=== PATIENT | male | born 1950 | race Caucasian/White ===

== ENCOUNTER 2016-04-22 11:57 | Day surgery (SDC) | payer OTHER ==
[~2016-04-22] VITALS: Ht 185.4 cm; Wt 122.0 kg
[~2016-04-22 11:57] MED LIST: AFEDITAB CR30 MG PO; ALEVE220 MG PO; AMARYL4 MG PO; AMOX TR-K CLV1 EAC4 PO; ANTIVERT25 MG PO; APRESOLINE25 MG PO; ASCORBIC ACID500 M3 PO; ASPIR 8181 M1 PO; ASPIRIN325 MG PO; ASPIRIN81 M2 PO; Amaryl PO; BACTRIM,SEPT1 TABLET PO; CIPRO500 MG PO; CLONIDINE HCL0.2 MG PO; CLOPIDOGREL75 MG PO; COLACE100 MG PO; DIABETA,MICRO1.25 MG PO; DICLOXACILLIN500 MG PO; Ecotrin PO; FENOFIBRATE160 M1 PO; FERROUS SULFAT325 MG PO; FLAGYL500 MG PO; FOLIC ACID0.4 MG PO; FUROSEMIDE20 MG PO; FUROSEMIDE40 MG PO; GABAPENTIN300 MG; GABAPENTIN300 MG PO; GLIMEPIRIDE4 MG; GLIMEPIRIDE4 MG PO; GLUCOPHAGE1000 MG; GLUCOPHAGE1000 MG PO; GLUCOSAMINE &1 EAC1 PO; GLUCOSAMINE CH1 EAC2 PO; GRALISE PO; GRALISE300 MG PO; HYDRALAZINE HCL25 MG PO; HYDRALAZINE HCL50 MG PO; HYDROCODON-ACE1 EAC7 PO; K-DUR20 MEQ PO; KAYEXALATE15 GM/60 M PO; KEFLEX500 MG PO; KLOR-CON M2020 MEQ PO; LASIX40 MG PO; LEVEMIR FL100 UNIT/1 SC; LEVOFLOXACIN500 MG PO; LEVOFLOXACIN750 MG PO; LIPITOR80 MG PO; LISINOPRIL10 MG PO; LISINOPRIL20 MG PO; LISINOPRIL40 MG; LISINOPRIL40 MG PO; LOPRESSOR25 MG PO; LOPRESSOR50 MG PO; LUGOL'S STRONG I8 ML TP; Lasix PO; METFORMIN HCL1000 M1 PO; METOPROLOL SUCC50 MG PO; NIFEDIPINE ER30 MG PO; NITRO QUICK PO; NITROSTAT0.4 MG SL; OMEPRAZOLE20 MG PO; OMEPRAZOLE40 M1 PO; OXAYDO5 MG PO; PERCOCET 5/31 TABLET PO; PLAVIX75 MG PO; PREDNISONE20 MG PO; PRINIVIL40 MG PO; PYRIDIUM200 MG PO; Plavix PO; SILVASORB1.5 OZ TP; SILVER GEL14.2 GM TP; SIMVASTATIN80 MG PO; SPIRONOLACTONE50 MG PO; TOPROL XL6.25 MG PO; ULTRAM50 MG PO; VITAMIN B12 100MCG PO; VITAMIN B12 PO; [UNRECOGNIZED DRUG - REMARK]; [UNRECOGNIZED DRUG - REMARK]; nifedipine
[2016-04-22 12:22] VITALS: BP 160/80
[2016-04-22 12:41] LABS: POINT-OF-CARE METER ID UU14174212
[2016-04-22 16:35] VITALS: BP 190/93
[2016-04-22 17:15] VITALS: BP 180/84
== END 2016-04-22 17:23 | disposition home or self-care (01) ==
LOC: SDC 11:57
PROVIDERS: Podiatrist Foot & Ankle Surgery
PROC: 0Y6N0Z8 Detachment at Left Foot, Complete 5th Ray, Open Approach (ICD-10-PCS; principal; 2016-04-22)
DX: E11.621 Type 2 diabetes mellitus with foot ulcer (principal); L97.524 Non-pressure chronic ulcer of other part of left foot with necrosis of bone; I10 Essential (primary) hypertension; I89.0 Lymphedema, not elsewhere classified; E78.5 Hyperlipidemia, unspecified; Z86.73 Personal history of transient ischemic attack (TIA), and cerebral infarction without residual deficits; Z85.028 Personal history of other malignant neoplasm of stomach; Z85.46 Personal history of malignant neoplasm of prostate
CPT/HCPCS: 71020; 82948; 87070; 87075; 87077; 87147; 87186; 87205; 88305; 88311; J0360; J0690; J2250; J2405; J3010; S0020

== ENCOUNTER 2016-05-24 10:51 | Observation (INO) | payer OTHER ==
[~2016-05-24] VITALS: Ht 182.9 cm; Wt 127.2 kg
[2016-05-24 13:04] VITALS: BP 169/81
[2016-05-24 15:02] VITALS: BP 188/82
[2016-05-24 15:20] VITALS: BP 190/90
[2016-05-24 16:20] VITALS: BP 190/90
[2016-05-24 17:20] VITALS: BP 190/90
[2016-05-24 17:48] LABS: POINT-OF-CARE METER ID UU13113831
[2016-05-24 20:00] VITALS: BP 160/90
[2016-05-24 21:55] LABS: HEMATOCRIT 29.5 % (38.0-50.0); MCV 85.8 FL (86-99)
[2016-05-24 23:08] LABS: POINT-OF-CARE METER ID UU13113700
[2016-05-25] VITALS: BP 168/88
[2016-05-25 03:30] VITALS: BP 160/90
[2016-05-25 06:00] LABS: EOSINOPHIL (%) 2.7 % (0-5); EOSINOPHIL COUNT 0.1 K/uL (0-0.3); HEMATOCRIT 27.4 % (38.0-50.0); LYMPHOCYTE COUNT 1.4 K/uL (1.0-2.8); MCH 27.9 PG (29.0-34.0); MCHC 32.8 G/DL (30.0-36.0); MCV 84.8 FL (86-99); MEAN PLAT.VOLUME 10.8 uM^3 (9.0-12.4); MONOCYTE (%) 5.8 % (3-12); MONOCYTE COUNT 0.3 K/uL (0-0.8); NEUTROPHIL (%) 63.3 % (45-76); NEUTROPHIL COUNT 3.1 K/uL (1.8-6.4); PLATELET COUNT 158 K/uL (156-360); RBC DIS.WIDTH-CV 13.9 % (11.8-14.6); RED BLOOD COUNT 3.23 M/uL (4.00-5.50); WHITE BLOOD COUNT 4.9 K/uL (4.1-10.2)
[2016-05-25 06:23] LABS: ANION GAP 7 MEQ/L (2-14); CHLORIDE 112 MEQ/L (99-109); GFR ESTIMATE (CALCULATED) 26 mL/min/; SAMPLE HEMOLYSIS CHECK 0; SAMPLE ICTERIC CHECK 0; SAMPLE LIPEMIA CHECK 0; SODIUM 141 MEQ/L (136-147); UREA NITROGEN (BUN) 48 mg/dL (9-23)
[2016-05-25 06:34] LABS: GLUCOSE 93 mg/dL (70-99)
[2016-05-25 11:14] VITALS: BP 122/80
[2016-05-25 12:36] LABS: POINT-OF-CARE METER ID UU13113831
[2016-05-25] MEDS ORDERED: FERROUS SULFAT325 MG PO (14:58)
== END 2016-05-25 16:51 | disposition home or self-care (01) ==
LOC: 5WEST 10:51 → 2SOUTH 10:58 → 5WEST 10:58
PROVIDERS: Hospitalist; Internal Medicine
DX: E11.22 Type 2 diabetes mellitus with diabetic chronic kidney disease (principal); I12.9 Hypertensive chronic kidney disease with stage 1 through stage 4 chronic kidney disease, or unspecified chronic kidney disease; N18.4 Chronic kidney disease, stage 4 (severe); N17.9 Acute kidney failure, unspecified; D63.1 Anemia in chronic kidney disease; R55 Syncope and collapse; R42 Dizziness and giddiness; Z86.31 Personal history of diabetic foot ulcer; Z89.422 Acquired absence of other left toe(s); E11.42 Type 2 diabetes mellitus with diabetic polyneuropathy; I25.10 Atherosclerotic heart disease of native coronary artery without angina pectoris; Z98.61 Coronary angioplasty status; Z79.4 Long term (current) use of insulin; Z86.73 Personal history of transient ischemic attack (TIA), and cerebral infarction without residual deficits; Z85.46 Personal history of malignant neoplasm of prostate; I89.0 Lymphedema, not elsewhere classified; E78.5 Hyperlipidemia, unspecified; Z85.028 Personal history of other malignant neoplasm of stomach
CPT/HCPCS: 80048; 82948; 85014; 85018; 85025; 86850; 86900; 86901; 86920; 93005; G0378; J0881; J1756; J1815; J7030; J7050; P9016

== ENCOUNTER 2016-11-07 19:49 | Emergency (ER) | payer OTHER ==
[~2016-11-07] VITALS: Ht 185.4 cm; Wt 115.1 kg
[2016-11-07 21:32] VITALS: BP 193/86
== END 2016-11-07 21:40 | disposition home or self-care (01) ==
LOC: EME 19:49 → EXP 19:49
PROC: 0HQCXZZ Repair Left Upper Arm Skin, External Approach (ICD-10-PCS; principal; 2016-11-07)
DX: S51.812A Laceration without foreign body of left forearm, initial encounter (principal); W21.11XA Struck by baseball bat, initial encounter; Y93.89 Activity, other specified; Y92.320 Baseball field as the place of occurrence of the external cause; Z79.82 Long term (current) use of aspirin; Z86.73 Personal history of transient ischemic attack (TIA), and cerebral infarction without residual deficits; Z95.5 Presence of coronary angioplasty implant and graft
CPT/HCPCS: 73090; 99281; 99284

== ENCOUNTER 2016-11-10 10:23 | Emergency (ER) | payer OTHER ==
[~2016-11-10] VITALS: Ht 185.4 cm; Wt 115.5 kg
[2016-11-10] MEDS ORDERED: KEFLEX500 MG PO (10:41)
[2016-11-10 11:06] VITALS: BP 135/61
== END 2016-11-10 11:06 | disposition home or self-care (01) ==
LOC: EME 10:23
DX: S51.812A Laceration without foreign body of left forearm, initial encounter (principal); W21.03XA Struck by baseball, initial encounter; Z48.00 Encounter for change or removal of nonsurgical wound dressing; Z79.02 Long term (current) use of antithrombotics/antiplatelets; Z79.82 Long term (current) use of aspirin; Z79.4 Long term (current) use of insulin
CPT/HCPCS: 99281; 99283

== ENCOUNTER 2016-12-17 21:30 | Inpatient (IN) | payer OTHER ==
[~2016-12-17] VITALS: Ht 185.4 cm; Wt 115.0 kg
[2016-12-17 21:52] LABS: HEMATOCRIT 26.2 % (38.0-50.0); MCH 30.4 PG (29.0-34.0); MCV 89.4 FL (86-99); MEAN PLAT.VOLUME 9.8 uM^3 (9.0-12.4); PLATELET COUNT 190 K/uL (156-360); RBC DIS.WIDTH-CV 13.2 % (11.8-14.6); RBC DIS.WIDTH-SD 42.9 % (39-53); RED BLOOD COUNT 2.93 M/uL (4.00-5.50); WHITE BLOOD COUNT 6.2 K/uL (4.1-10.2)
[2016-12-17 22:02] LABS: CHLORIDE 110 mEq/L (99-109); POTASSIUM 5.1 mEq/L (3.7-5.4); SODIUM 139 mEq/L (136-147)
[2016-12-17 22:04] LABS: GLUCOSE 254 mg/dL (70-99)
[2016-12-17 22:06] LABS: ANION GAP 11 MEQ/L (2-14)
[2016-12-17 22:08] LABS: GFR ESTIMATE (CALCULATED) 14 mL/min/
[2016-12-17 22:09] LABS: UREA NITROGEN (BUN) 77 mg/dL (9-23)
[2016-12-17 22:13] LABS: TROP-I INTERPRETATION NEGATIVE; TROPONIN-I 0.05 ng/mL (0.0-0.30)
[2016-12-18] VITALS (8 sets, daily range): BP systolic 120–228; BP diastolic 56–94
[2016-12-18 04:50] LABS: TROP-I INTERPRETATION NEGATIVE; TROPONIN-I 0.08 ng/mL (0.0-0.30)
[2016-12-18 08:09] LABS: POINT-OF-CARE METER ID UU13113700
[2016-12-18 09:19] LABS: ANION GAP 9 MEQ/L (2-14); CHLORIDE 111 MEQ/L (99-109); GFR ESTIMATE (CALCULATED) 14 mL/min/; GLUCOSE 196 mg/dL (70-99); POTASSIUM 4.6 MEQ/L (3.7-5.4); SAMPLE HEMOLYSIS CHECK 0; SAMPLE ICTERIC CHECK 0; SAMPLE LIPEMIA CHECK 1; SODIUM 139 MEQ/L (136-147); UREA NITROGEN (BUN) 80 mg/dL (9-23)
[2016-12-18 10:22] LABS: TROP-I INTERPRETATION NEGATIVE; TROPONIN-I 0.08 ng/mL (0.0-0.30)
[2016-12-18 12:27] LABS: POINT-OF-CARE METER ID UU14162513
[2016-12-18] MEDS ORDERED: LISINOPRIL10 MG PO (13:49)
[2016-12-18] MEDS ORDERED: CRESTOR40 MG PO (13:51)
[2016-12-18] MEDS ORDERED: TORSEMIDE20 MG PO (13:52)
[2016-12-18] MEDS ORDERED: APRESOLINE50 MG PO (13:57)
[2016-12-18] MEDS ORDERED: LOPRESSOR50 MG PO (13:59)
[2016-12-18 17:47] LABS: POINT-OF-CARE METER ID UU13113700
[2016-12-18 21:39] LABS: POINT-OF-CARE METER ID UU14162513
[2016-12-19] VITALS (11 sets, daily range): BP systolic 105–171; BP diastolic 60–82
[2016-12-19 05:42] LABS: EOSINOPHIL COUNT 0.1 K/uL (0-0.3); HEMATOCRIT 23.2 % (38.0-50.0); IMMATURE GRANULOCYTE (%) 0.6 % (0.0-0.7); INSTRUMENT ABS NEUTROPHIL CT 4.4 K/uL; LYMPHOCYTE COUNT 1.6 K/uL (1.0-2.8); MCH 30.9 PG (29.0-34.0); MCHC 33.2 G/DL (30.0-36.0); MCV 93.2 FL (86-99); MEAN PLAT.VOLUME 10.2 uM^3 (9.0-12.4); MONOCYTE (%) 7.8 % (3-12); MONOCYTE COUNT 0.5 K/uL (0-0.8); NEUTROPHIL (%) 65.2 % (45-76); NEUTROPHIL COUNT 4.4 K/uL (1.8-6.4); PLATELET COUNT 171 K/uL (156-360); RBC DIS.WIDTH-CV 13.6 % (11.8-14.6); RBC DIS.WIDTH-SD 45.7 % (39-53); RED BLOOD COUNT 2.49 M/uL (4.00-5.50); WHITE BLOOD COUNT 6.7 K/uL (4.1-10.2)
[2016-12-19 06:27] LABS: ANION GAP 8 MEQ/L (2-14); CHLORIDE 112 MEQ/L (99-109); GFR ESTIMATE (CALCULATED) 14 mL/min/; POTASSIUM 4.8 MEQ/L (3.7-5.4); SAMPLE HEMOLYSIS CHECK 0; SAMPLE ICTERIC CHECK 0; SAMPLE LIPEMIA CHECK 0; SODIUM 140 MEQ/L (136-147); UREA NITROGEN (BUN) 77 mg/dL (9-23)
[2016-12-19 06:30] LABS: GLUCOSE 58 mg/dL (70-99)
[2016-12-19 08:16] LABS: POINT-OF-CARE METER ID UU14162513
[2016-12-19 08:37] LABS: POINT-OF-CARE METER ID UU13113831; POINT-OF-CARE USER ID PUTHJD81
[2016-12-19] MEDS ORDERED: CLEAR EYES REDN30 M1 RIGHT EYE (12:05)
[2016-12-19 12:29] LABS: POINT-OF-CARE METER ID UU13113831
[2016-12-19 23:25] LABS: POINT-OF-CARE METER ID UU13113831
[2016-12-20] VITALS (7 sets, daily range): BP systolic 116–196; BP diastolic 56–82
[2016-12-20 08:39] LABS: POINT-OF-CARE METER ID UU14162513
[2016-12-20 08:51] LABS: IMM.RETIC FRACTION 16.4 % (3-19); RETIC HGB EQUIVALENT 31.5 (28-36); RETICULOCYTE COUNT 2.7 % (0.5-1.8)
[2016-12-20 09:16] LABS: IRON 18 MCG/DL (35-150)
[2016-12-20 10:27] LABS: GFR ESTIMATE (CALCULATED) 16 mL/min/; UREA NITROGEN (BUN) 65 mg/dL (9-23)
[2016-12-20 10:39] LABS: FERRITIN 246 NG/ML (22-322)
[2016-12-20 11:40] LABS: EOSINOPHIL (%) 1.2 % (0-5); EOSINOPHIL COUNT 0.1 K/uL (0-0.3); HEMATOCRIT 26.1 % (38.0-50.0); IMMATURE GRANULOCYTE (%) 0.4 % (0.0-0.7); INSTRUMENT ABS NEUTROPHIL CT 6.3 K/uL; LYMPHOCYTE COUNT 0.8 K/uL (1.0-2.8); MCH 29.2 PG (29.0-34.0); MCHC 32.2 G/DL (30.0-36.0); MCV 90.6 FL (86-99); MEAN PLAT.VOLUME 10.6 uM^3 (9.0-12.4); MONOCYTE (%) 7.6 % (3-12); MONOCYTE COUNT 0.6 K/uL (0-0.8); NEUTROPHIL (%) 80.4 % (45-76); NEUTROPHIL COUNT 6.3 K/uL (1.8-6.4); PLATELET COUNT 156 K/uL (156-360); RBC DIS.WIDTH-CV 13.8 % (11.8-14.6); RBC DIS.WIDTH-SD 44.8 % (39-53); RED BLOOD COUNT 2.88 M/uL (4.00-5.50); WHITE BLOOD COUNT 7.8 K/uL (4.1-10.2)
[2016-12-20 12:17] LABS: POINT-OF-CARE METER ID UU13113831
[2016-12-20 22:48] LABS: POINT-OF-CARE METER ID UU14162513
[2016-12-21 04:34] VITALS: BP 165/80
[2016-12-21 06:02] VITALS: BP 152/72
[2016-12-21 06:34] LABS: EOSINOPHIL (%) 0.9 % (0-5); EOSINOPHIL COUNT 0.1 K/uL (0-0.3); HEMATOCRIT 26.8 % (38.0-50.0); IMMATURE GRANULOCYTE (%) 0.4 % (0.0-0.7); INSTRUMENT ABS NEUTROPHIL CT 5.7 K/uL; MCH 29.1 PG (29.0-34.0); MCHC 32.5 G/DL (30.0-36.0); MCV 89.6 FL (86-99); MEAN PLAT.VOLUME 10.2 uM^3 (9.0-12.4); MONOCYTE (%) 9.7 % (3-12); MONOCYTE COUNT 0.7 K/uL (0-0.8); NEUTROPHIL COUNT 5.7 K/uL (1.8-6.4); PLATELET COUNT 161 K/uL (156-360); RBC DIS.WIDTH-CV 13.7 % (11.8-14.6); RBC DIS.WIDTH-SD 44.8 % (39-53); RED BLOOD COUNT 2.99 M/uL (4.00-5.50); WHITE BLOOD COUNT 7.5 K/uL (4.1-10.2)
[2016-12-21 07:00] LABS: ANION GAP 11 MEQ/L (2-14); CHLORIDE 109 MEQ/L (99-109); GFR ESTIMATE (CALCULATED) 14 mL/min/; GLUCOSE 57 mg/dL (70-99); POTASSIUM 4.7 MEQ/L (3.7-5.4); SAMPLE HEMOLYSIS CHECK 0; SAMPLE ICTERIC CHECK 0; SAMPLE LIPEMIA CHECK 0; SODIUM 138 MEQ/L (136-147); UREA NITROGEN (BUN) 71 mg/dL (9-23)
[2016-12-21 07:45] VITALS: BP 152/76
[2016-12-21 08:59] LABS: POINT-OF-CARE METER ID UU13113831
[2016-12-21 11:58] VITALS: BP 158/72
[2016-12-21 16:12] VITALS: BP 172/78
[2016-12-21 17:58] LABS: POINT-OF-CARE METER ID UU13113831
[2016-12-21 19:00] VITALS: BP 170/72
[2016-12-21 19:30] LABS: INTERNAL CONTROL VALID? YES
[2016-12-21 22:15] LABS: POINT-OF-CARE METER ID UU13113831
[2016-12-22] VITALS: BP 146/58
[2016-12-22 03:51] VITALS: BP 153/70
[2016-12-22 05:52] LABS: EOSINOPHIL (%) 1.9 % (0-5); EOSINOPHIL COUNT 0.1 K/uL (0-0.3); HEMATOCRIT 26.5 % (38.0-50.0); IMMATURE GRANULOCYTE (%) 0.4 % (0.0-0.7); INSTRUMENT ABS NEUTROPHIL CT 3.2 K/uL; LYMPHOCYTE COUNT 1.1 K/uL (1.0-2.8); MCH 29.6 PG (29.0-34.0); MCHC 32.8 G/DL (30.0-36.0); MCV 90.1 FL (86-99); MEAN PLAT.VOLUME 10.1 uM^3 (9.0-12.4); MONOCYTE (%) 9.1 % (3-12); MONOCYTE COUNT 0.4 K/uL (0-0.8); NEUTROPHIL (%) 65.8 % (45-76); NEUTROPHIL COUNT 3.2 K/uL (1.8-6.4); PLATELET COUNT 142 K/uL (156-360); RBC DIS.WIDTH-CV 13.6 % (11.8-14.6); RBC DIS.WIDTH-SD 44.5 % (39-53); RED BLOOD COUNT 2.94 M/uL (4.00-5.50); WHITE BLOOD COUNT 4.8 K/uL (4.1-10.2)
[2016-12-22 06:21] LABS: ANION GAP 8 MEQ/L (2-14); CHLORIDE 109 MEQ/L (99-109); GFR ESTIMATE (CALCULATED) 14 mL/min/; GLUCOSE 70 mg/dL (70-99); POTASSIUM 4.7 MEQ/L (3.7-5.4); SAMPLE HEMOLYSIS CHECK 0; SAMPLE ICTERIC CHECK 0; SAMPLE LIPEMIA CHECK 0; SODIUM 135 MEQ/L (136-147); UREA NITROGEN (BUN) 74 mg/dL (9-23)
[2016-12-22 08:14] LABS: POINT-OF-CARE METER ID UU13113700
[2016-12-22 08:38] LABS: POINT-OF-CARE METER ID UU13113700
[2016-12-22 08:41] VITALS: BP 182/81
[2016-12-22 11:12] VITALS: BP 177/82
[2016-12-22 12:14] LABS: POINT-OF-CARE METER ID UU13113700
[2016-12-22] MEDS ORDERED: APRESOLINE50 MG PO (15:09)
[2016-12-22] MEDS ORDERED: RANEXA500 MG PO (15:09)
[2016-12-22] MEDS ORDERED: IMDUR30 MG PO (15:10)
[2016-12-22] MEDS ORDERED: TORSEMIDE20 MG PO (15:10)
[2016-12-22] MEDS ORDERED: DOCUSATE SODIU100 MG PO (15:11)
[2016-12-22 16:03] VITALS: BP 152/84
[2016-12-22 16:22] LABS: POINT-OF-CARE METER ID UU13113700
[2016-12-22 20:00] VITALS: BP 200/84
[2016-12-23] VITALS: BP 142/60
[2016-12-23 04:00] VITALS: BP 156/84
[2016-12-23 07:51] LABS: POINT-OF-CARE METER ID UU14162513
[2016-12-23 08:09] VITALS: BP 160/90
== END 2016-12-23 11:18 | disposition home or self-care (01) | DRG 303 ==
LOC: EME → EDBD 21:30 → EDOF 12-18 01:34 → ENRESERV 12-18 01:44 → 5WEST 12-18 03:59 → CANRESERV 12-18 04:57 → ENRESERV 12-18 04:57 → 5WEST 12-23 11:18
PROVIDERS: Hospitalist; Internal Medicine; Internal Medicine Nephrology; Nurse Practitioner Family
DX: I25.119 Atherosclerotic heart disease of native coronary artery with unspecified angina pectoris (principal); N17.9 Acute kidney failure, unspecified; D63.1 Anemia in chronic kidney disease; I13.0 Hypertensive heart and chronic kidney disease with heart failure and stage 1 through stage 4 chronic kidney disease, or unspecified chronic kidney disease; I50.9 Heart failure, unspecified; E11.22 Type 2 diabetes mellitus with diabetic chronic kidney disease; E11.21 Type 2 diabetes mellitus with diabetic nephropathy; N18.3 Chronic kidney disease, stage 3 (moderate); E78.5 Hyperlipidemia, unspecified; E87.5 Hyperkalemia; I44.0 Atrioventricular block, first degree; J45.909 Unspecified asthma, uncomplicated; K21.9 Gastro-esophageal reflux disease without esophagitis; I87.2 Venous insufficiency (chronic) (peripheral); G43.909 Migraine, unspecified, not intractable, without status migrainosus; E66.01 Morbid (severe) obesity due to excess calories; Z68.33 Body mass index [BMI] 33.0-33.9, adult; I25.2 Old myocardial infarction; Z79.4 Long term (current) use of insulin; Z79.82 Long term (current) use of aspirin; Z85.028 Personal history of other malignant neoplasm of stomach; Z85.46 Personal history of malignant neoplasm of prostate; Z86.73 Personal history of transient ischemic attack (TIA), and cerebral infarction without residual deficits; Z95.5 Presence of coronary angioplasty implant and graft; Z95.1 Presence of aortocoronary bypass graft; Z79.02 Long term (current) use of antithrombotics/antiplatelets; Z89.429 Acquired absence of other toe(s), unspecified side
CPT/HCPCS: 71020; 80048; 80069; 82272; 82565; 82607; 82728; 82746; 82948; 83540; 84466; 84484; 84520; 85025; 85025 91; 85027; 85045; 85379; 86850; 86900; 86901; 86920; 93005; 93306; 99281; 99285; J0881; J1644; J1815; J2270; J3010; J7030; P9016

== ENCOUNTER 2017-03-04 17:55 | Observation (INO) | payer OTHER ==
[~2017-03-04] VITALS: Ht 185.4 cm; Wt 111.5 kg
[~2017-03-04 17:55] MED LIST changes: +APRESOLINE50 MG PO; +CLEAR EYES REDN30 M1 RIGHT EYE; +CRESTOR40 MG PO; +CYANOCOBALAM1000 MCG PO; +DOCUSATE SODIU100 MG PO; +IMDUR30 MG PO; +RANEXA500 MG PO; +TORSEMIDE20 MG PO
[2017-03-04 18:34] LABS: POINT-OF-CARE METER ID UU13113702
[2017-03-04 20:01] LABS: PROTHROMBIN TIME 11.3 SEC (10.2-12.9)
[2017-03-04 20:04] LABS: CHLORIDE 113 mEq/L (99-109); POTASSIUM 5.3 mEq/L (3.7-5.4); SODIUM 137 mEq/L (136-147)
[2017-03-04 20:05] LABS: GLUCOSE 205 mg/dL (70-99)
[2017-03-04 20:07] LABS: ANION GAP 9 MEQ/L (2-14)
[2017-03-04 20:07] LABS: ADD MIUA? YES; BILIRUBIN NEGATIVE; BLOOD NEGATIVE; COLOR YELLOW ((YELLOW)); GLUCOSE (STRIP) >=500; KETONES NEGATIVE; LEUKOCYTES NEGATIVE; NITRITE NEGATIVE; PROTEIN (STRIP) >=500; SPECIFIC GRAVITY 1.009 (1.000-1.030); UROBILINOGEN 0.2 MG/DL (0.2-1.0)
[2017-03-04 20:09] LABS: GFR ESTIMATE (CALCULATED) 14 mL/min/
[2017-03-04 20:10] LABS: UREA NITROGEN (BUN) 81 mg/dL (9-23)
[2017-03-04 20:14] LABS: TROP-I INTERPRETATION NEGATIVE; TROPONIN-I 0.07 ng/mL (0.0-0.30)
[2017-03-04 20:25] LABS: HEMATOCRIT 28.3 % (38.0-50.0); MCHC 32.5 G/DL (30.0-36.0); MCV 89.3 FL (86-99); PLATELET COUNT 166 K/uL (156-360); RBC DIS.WIDTH-CV 13.4 % (11.8-14.6); RBC DIS.WIDTH-SD 43.7 % (39-53); RED BLOOD COUNT 3.17 M/uL (4.00-5.50); WHITE BLOOD COUNT 5.6 K/uL (4.1-10.2)
[2017-03-04 20:42] LABS: EPITHELIAL CELLS NONE SEEN /HPF; RED BLOOD CELLS RARE /HPF (0-5); WHITE BLOOD CELLS RARE /HPF (0-5)
[2017-03-04 20:43] LABS: BACTERIA RARE /HPF; CASTS PRESENT /LPF; CRYSTALS NONE SEEN; MUCUS RARE /LPF; UCUL ADDED? NO
[2017-03-04 20:44] LABS: COARSE GRANULAR CASTS RARE /LPF; FINE GRANULAR CASTS RARE /LPF
[2017-03-04 20:48] LABS: TOTAL BILIRUBIN 0.3 mg/dL (0.0-1.0)
[2017-03-04 20:49] LABS: ALKALINE PHOSPHATASE 72 IU/L (3-129)
[2017-03-04 20:52] LABS: DIRECT BILIRUBIN 0.1 mg/dL (0.0-0.3)
[2017-03-04 20:53] LABS: LIPASE 28 U/L (1.0-51.0)
[2017-03-04 21:31] LABS: PTT 19.2 SEC (25-37)
[2017-03-04] MEDS ORDERED: COLACE100 MG PO (22:56)
[2017-03-04] MEDS ORDERED: DEMADEX20 MG PO (22:56)
[2017-03-04] MEDS ORDERED: NABI650T PO (22:57)
[2017-03-04] MEDS ORDERED: FUROSEMIDE20 MG PO (22:57)
[2017-03-05] VITALS: BP 142/66
[2017-03-05 01:05] LABS: TROP-I INTERPRETATION NEGATIVE; TROPONIN-I 0.06 ng/mL (0.0-0.30)
[2017-03-05 04:00] VITALS: BP 130/72
[2017-03-05 04:12] LABS: EOSINOPHIL (%) 1.9 % (0-5); EOSINOPHIL COUNT 0.1 K/uL (0-0.3); IMMATURE GRANULOCYTE (%) 0.6 % (0.0-0.7); LYMPHOCYTE COUNT 1.2 K/uL (1.0-2.8); MCH 29.8 PG (29.0-34.0); MCHC 33.3 G/DL (30.0-36.0); MCV 89.4 FL (86-99); MEAN PLAT.VOLUME 10.6 uM^3 (9.0-12.4); MONOCYTE (%) 8.5 % (3-12); MONOCYTE COUNT 0.4 K/uL (0-0.8); NEUTROPHIL (%) 63.7 % (45-76); PLATELET COUNT 146 K/uL (156-360); RBC DIS.WIDTH-CV 13.6 % (11.8-14.6); RBC DIS.WIDTH-SD 44.2 % (39-53); RED BLOOD COUNT 3.02 M/uL (4.00-5.50); WHITE BLOOD COUNT 4.7 K/uL (4.1-10.2)
[2017-03-05 04:25] LABS: CHLORIDE 115 mEq/L (99-109); POTASSIUM 5.1 mEq/L (3.7-5.4); SODIUM 142 mEq/L (136-147)
[2017-03-05 04:27] LABS: GLUCOSE 156 mg/dL (70-99)
[2017-03-05 04:28] LABS: ANION GAP 9 MEQ/L (2-14)
[2017-03-05 04:31] LABS: GFR ESTIMATE (CALCULATED) 14 mL/min/; UREA NITROGEN (BUN) 82 mg/dL (9-23)
[2017-03-05 04:40] LABS: TROP-I INTERPRETATION NEGATIVE; TROPONIN-I 0.06 ng/mL (0.0-0.30)
[2017-03-05 08:15] LABS: POINT-OF-CARE METER ID UU13113700
[2017-03-05 09:18] VITALS: BP 140/70
[2017-03-05 12:55] LABS: POINT-OF-CARE METER ID UU13113831
[2017-03-05 13:01] VITALS: BP 145/89
[2017-03-05] MEDS ORDERED: LOPRESSOR25 MG PO (15:22)
== END 2017-03-05 16:48 | disposition home or self-care (01) ==
LOC: EME 17:55 → 5WEST 22:19 → EDOF 22:19 → ENRESERV 22:21 → 5WEST 23:25
PROVIDERS: Emergency Medicine; Internal Medicine
DX: R55 Syncope and collapse (principal); R00.1 Bradycardia, unspecified; I51.7 Cardiomegaly; I25.10 Atherosclerotic heart disease of native coronary artery without angina pectoris; Z95.5 Presence of coronary angioplasty implant and graft; R94.31 Abnormal electrocardiogram [ECG] [EKG]; E78.5 Hyperlipidemia, unspecified; I12.9 Hypertensive chronic kidney disease with stage 1 through stage 4 chronic kidney disease, or unspecified chronic kidney disease; E11.22 Type 2 diabetes mellitus with diabetic chronic kidney disease; N17.9 Acute kidney failure, unspecified; N18.4 Chronic kidney disease, stage 4 (severe); D63.1 Anemia in chronic kidney disease; E11.40 Type 2 diabetes mellitus with diabetic neuropathy, unspecified; Z86.73 Personal history of transient ischemic attack (TIA), and cerebral infarction without residual deficits; S51.812A Laceration without foreign body of left forearm, initial encounter; Z90.49 Acquired absence of other specified parts of digestive tract; Z82.49 Family history of ischemic heart disease and other diseases of the circulatory system; Z79.4 Long term (current) use of insulin; I45.10 Unspecified right bundle-branch block; Z85.028 Personal history of other malignant neoplasm of stomach; Z85.46 Personal history of malignant neoplasm of prostate
CPT/HCPCS: 71010; 80048; 80076; 81003; 82140; 82948; 83690; 84484; 85025; 85027; 85027 GA; 85610; 85730; 93005; 93880; 99281; 99285; G0378; J1644; J7030

== ENCOUNTER 2017-03-28 15:34 | Emergency (ER) | payer OTHER ==
[~2017-03-28] VITALS: Ht 185.4 cm; Wt 114.8 kg
[~2017-03-28 15:34] MED LIST changes: +DEMADEX20 MG PO; +NABI650T PO
[2017-03-28 16:28] LABS: HEMATOCRIT 28.3 % (38.0-50.0); MCH 29.6 PG (29.0-34.0); MCHC 32.9 G/DL (30.0-36.0); MCV 90.1 FL (86-99); MEAN PLAT.VOLUME 11.1 uM^3 (9.0-12.4); PLATELET COUNT 142 K/uL (156-360); RBC DIS.WIDTH-CV 13.2 % (11.8-14.6); RBC DIS.WIDTH-SD 43.4 % (39-53); RED BLOOD COUNT 3.14 M/uL (4.00-5.50); WHITE BLOOD COUNT 4.6 K/uL (4.1-10.2)
[2017-03-28 16:37] LABS: CHLORIDE 107 mEq/L (99-109); POTASSIUM 5.4 mEq/L (3.7-5.4); SODIUM 140 mEq/L (136-147)
[2017-03-28 16:39] LABS: GLUCOSE 193 mg/dL (70-99)
[2017-03-28 16:41] LABS: ANION GAP 12 MEQ/L (2-14)
[2017-03-28 16:43] LABS: GFR ESTIMATE (CALCULATED) 12 mL/min/ (58.99-99999)
[2017-03-28 16:44] LABS: UREA NITROGEN (BUN) 86 mg/dL (9-23)
[2017-03-28 16:48] LABS: TROP-I INTERPRETATION NEGATIVE; TROPONIN-I 0.05 ng/mL (0.0-0.30)
[2017-03-28 20:01] LABS: TROP-I INTERPRETATION NEGATIVE; TROPONIN-I 0.03 ng/mL (0.0-0.30)
[2017-03-28 20:35] VITALS: BP 154/94
== END 2017-03-28 20:38 | disposition home or self-care (01) ==
LOC: EME 15:34
PROVIDERS: Physician Assistant Medical
DX: R07.81 Pleurodynia (principal); R05 Cough; I44.0 Atrioventricular block, first degree; I70.0 Atherosclerosis of aorta; I25.2 Old myocardial infarction; Z86.718 Personal history of other venous thrombosis and embolism; Z79.82 Long term (current) use of aspirin; Z79.02 Long term (current) use of antithrombotics/antiplatelets; I10 Essential (primary) hypertension; E78.5 Hyperlipidemia, unspecified; E11.9 Type 2 diabetes mellitus without complications; Z79.4 Long term (current) use of insulin; Z85.028 Personal history of other malignant neoplasm of stomach; Z85.46 Personal history of malignant neoplasm of prostate
CPT/HCPCS: 71020; 80048; 84484; 85027; 93005; 94640; 99281; 99285

== ENCOUNTER 2017-06-14 10:28 | Day surgery (SDC) | payer OTHER ==
[~2017-06-14] VITALS: Ht 185.4 cm; Wt 117.5 kg
[2017-06-14 11:01] VITALS: BP 151/101
[2017-06-14] MEDS ORDERED: NORCO 5/3251 TABLET PO (14:43)
[2017-06-14 15:20] VITALS: BP 153/63
[2017-06-14 16:16] VITALS: BP 162/68
== END 2017-06-14 16:35 | disposition home or self-care (01) ==
LOC: SDC 10:28
PROVIDERS: Surgery
DX: I12.0 Hypertensive chronic kidney disease with stage 5 chronic kidney disease or end stage renal disease (principal); E11.22 Type 2 diabetes mellitus with diabetic chronic kidney disease; N18.6 End stage renal disease; Z79.4 Long term (current) use of insulin; E78.4 Other hyperlipidemia; I25.10 Atherosclerotic heart disease of native coronary artery without angina pectoris; Z79.82 Long term (current) use of aspirin; Z82.49 Family history of ischemic heart disease and other diseases of the circulatory system; Z86.73 Personal history of transient ischemic attack (TIA), and cerebral infarction without residual deficits; Z85.46 Personal history of malignant neoplasm of prostate; Z86.010 Personal history of colon polyps
CPT/HCPCS: 80048; 82948; 85027; J0690; J1644; J3010

== ENCOUNTER 2017-07-08 11:51 | Inpatient (IN) | payer OTHER ==
[~2017-07-08] VITALS: Ht 185.4 cm; Wt 120.7 kg
[~2017-07-08 11:51] MED LIST changes: +NORCO 5/3251 TABLET PO
[2017-07-08 12:20] LABS: HEMATOCRIT 24.1 % (38.0-50.0); HEMOGLOBIN 7.9 G/DL (12.5-16.6); MCH 29.6 PG (29.0-34.0); MCHC 32.8 G/DL (30.0-36.0); MCV 90.3 FL (86-99); PLATELET COUNT 169 K/uL (156-360); RBC DIS.WIDTH-CV 13.7 % (11.8-14.6); RBC DIS.WIDTH-SD 44.8 % (39-53); RED BLOOD COUNT 2.67 M/uL (4.00-5.50); WHITE BLOOD COUNT 7.3 K/uL (4.1-10.2)
[2017-07-08 12:28] LABS: CHLORIDE 114 mEq/L (99-109); POTASSIUM 5.2 mEq/L (3.7-5.4); SODIUM 142 mEq/L (136-147)
[2017-07-08 12:30] LABS: GLUCOSE 132 mg/dL (70-99)
[2017-07-08 12:33] LABS: CREATININE 5.6 mg/dL (0.6-1.3); GFR ESTIMATE (CALCULATED) 11 mL/min/ (58.99-99999)
[2017-07-08 12:34] LABS: UREA NITROGEN (BUN) 95 mg/dL (9-23)
[2017-07-08 12:40] LABS: TROP-I INTERPRETATION NEGATIVE; TROPONIN-I 0.06 ng/mL (0.0-0.30)
[2017-07-08 13:55] LABS: INTER. NORMALIZED RATIO 1.1
[2017-07-08 13:58] LABS: PTT 33.3 SEC (25-37)
[2017-07-08 14:05] LABS: LIPASE 22 U/L (1.0-51.0)
[2017-07-08] MEDS ORDERED: APRESOLINE50 MG PO (15:18)
[2017-07-08] MEDS ORDERED: TOPROL XL25 MG PO (15:22)
[2017-07-08 18:46] VITALS: BP 186/84
[2017-07-09 00:21] VITALS: BP 146/72
[2017-07-09 01:08] LABS: TROP-I INTERPRETATION NEGATIVE; TROPONIN-I 0.05 ng/mL (0.0-0.30)
[2017-07-09 03:48] VITALS: BP 153/64
[2017-07-09 06:19] LABS: HEMATOCRIT 22.6 % (38.0-50.0); HEMOGLOBIN 7.2 G/DL (12.5-16.6); MCH 29.4 PG (29.0-34.0); MCHC 31.9 G/DL (30.0-36.0); MCV 92.2 FL (86-99); PLATELET COUNT 132 K/uL (156-360); RBC DIS.WIDTH-CV 13.8 % (11.8-14.6); RBC DIS.WIDTH-SD 45.4 % (39-53); RED BLOOD COUNT 2.45 M/uL (4.00-5.50); WHITE BLOOD COUNT 5.3 K/uL (4.1-10.2)
[2017-07-09 06:39] LABS: TROP-I INTERPRETATION NEGATIVE; TROPONIN-I 0.05 ng/mL (0.0-0.30)
[2017-07-09 06:46] LABS: CHLORIDE 111 MEQ/L (99-109); CREATININE 5.7 MG/DL (0.6-1.3); GFR ESTIMATE (CALCULATED) 11 mL/min/ (58.99-99999); GLUCOSE 144 mg/dL (70-99); POTASSIUM 5.4 MEQ/L (3.7-5.4); SODIUM 140 MEQ/L (136-147); UREA NITROGEN (BUN) 91 mg/dL (9-23)
[2017-07-09 08:52] VITALS: BP 176/69
[2017-07-09 12:08] VITALS: BP 166/71
[2017-07-09 15:12] LABS: APPEARANCE CLOUDY ((CLEAR)); BILIRUBIN NEGATIVE; BLOOD SMALL; COLOR YELLOW ((YELLOW)); GLUCOSE (STRIP) >=500; KETONES NEGATIVE; LEUKOCYTES NEGATIVE; NITRITE NEGATIVE; PROTEIN (STRIP) >=500; SPECIFIC GRAVITY 1.011 (1.000-1.030); UROBILINOGEN 0.2 MG/DL (0.2-1.0)
[2017-07-09 15:24] LABS: BACTERIA RARE /HPF; EPITHELIAL CELLS RARE /HPF; MUCUS TRACE /LPF; RED BLOOD CELLS 0-5 /HPF (0-5); UCUL ADDED? YES
[2017-07-09] MEDS ORDERED: TORSEMIDE20 MG PO ×2 (16:07→16:30)
[2017-07-09 16:20] VITALS: BP 132/65
[2017-07-09] MEDS ORDERED: IMDUR30 MG PO (16:30)
== END 2017-07-09 18:52 | disposition home or self-care (01) | DRG 304 ==
LOC: EME 11:51 → EDOF 15:57 → ENRESERV 15:59 → 5SOUTH 18:15
PROVIDERS: Internal Medicine; Nurse Practitioner Acute Care
DX: I16.0 Hypertensive urgency (principal); I13.2 Hypertensive heart and chronic kidney disease with heart failure and with stage 5 chronic kidney disease, or end stage renal disease; N18.5 Chronic kidney disease, stage 5; I50.31 Acute diastolic (congestive) heart failure; D63.1 Anemia in chronic kidney disease; E11.22 Type 2 diabetes mellitus with diabetic chronic kidney disease; E11.40 Type 2 diabetes mellitus with diabetic neuropathy, unspecified; Z66 Do not resuscitate; E66.01 Morbid (severe) obesity due to excess calories; Z68.35 Body mass index [BMI] 35.0-35.9, adult; I25.10 Atherosclerotic heart disease of native coronary artery without angina pectoris; E78.5 Hyperlipidemia, unspecified; I25.2 Old myocardial infarction; J45.909 Unspecified asthma, uncomplicated; Z86.73 Personal history of transient ischemic attack (TIA), and cerebral infarction without residual deficits; Z85.46 Personal history of malignant neoplasm of prostate; Z85.028 Personal history of other malignant neoplasm of stomach; Z95.1 Presence of aortocoronary bypass graft; Z95.5 Presence of coronary angioplasty implant and graft; Z89.422 Acquired absence of other left toe(s); Z89.421 Acquired absence of other right toe(s); Z90.79 Acquired absence of other genital organ(s); Z79.4 Long term (current) use of insulin; Z79.02 Long term (current) use of antithrombotics/antiplatelets; Z79.82 Long term (current) use of aspirin; Z82.49 Family history of ischemic heart disease and other diseases of the circulatory system; Z82.3 Family history of stroke
CPT/HCPCS: 71046; 80048; 81003; 82272; 82948; 83036; 83690; 83880; 83880 GA; 84484; 85027; 85379; 85610; 85730; 87040; 87086; 93005; 94760; 99202; 99281; 99285; J0360; J1940; J2405

== ENCOUNTER 2017-11-15 16:39 | Inpatient (IN) | payer OTHER ==
[~2017-11-15] VITALS: Ht 185.4 cm; Wt 119.1 kg
[~2017-11-15 16:39] MED LIST changes: -ASPIRIN81 M2 PO; +LO-DOSE ASPIRIN81 M1 PO; +TOPROL XL25 MG PO
[2017-11-15 18:04] LABS: HEMATOCRIT 33.8 % (38.0-50.0); HEMOGLOBIN 10.3 G/DL (12.5-16.6); MCH 25.1 PG (29.0-34.0); MCHC 30.5 G/DL (30.0-36.0); MCV 82.2 FL (86-99); PLATELET COUNT 173 K/uL (156-360); RBC DIS.WIDTH-CV 16.1 % (11.8-14.6); RBC DIS.WIDTH-SD 48.6 % (39-53); RED BLOOD COUNT 4.11 M/uL (4.00-5.50); WHITE BLOOD COUNT 5.3 K/uL (4.1-10.2)
[2017-11-15 18:21] LABS: ALBUMIN 2.9 g/dL (3.2-4.8)
[2017-11-15 18:22] LABS: CHLORIDE 112 mEq/L (99-109); SODIUM 139 mEq/L (136-147)
[2017-11-15 18:24] LABS: TOTAL PROTEIN 5.6 g/dL (6.4-8.3)
[2017-11-15 18:26] LABS: TOTAL BILIRUBIN 0.4 mg/dL (0.0-1.0)
[2017-11-15 18:27] LABS: ALKALINE PHOSPHATASE 68 IU/L (3-129); GLUCOSE 83 mg/dL (70-99)
[2017-11-15 18:28] LABS: CREATININE 6.2 mg/dL (0.6-1.3); GFR ESTIMATE (CALCULATED) 10 mL/min/ (58.99-99999)
[2017-11-15 18:29] LABS: AST (GOT) 18 IU/L (2-34); UREA NITROGEN (BUN) 85 mg/dL (9-23)
[2017-11-15 18:30] LABS: ALT (GPT) 19 IU/L (3-49)
[2017-11-15 18:49] LABS: POTASSIUM 6.5 mEq/L (3.7-5.4)
[2017-11-15] MEDS ORDERED: IRON325 M1 PO (20:28)
[2017-11-15] MEDS ORDERED: DEMADEX20 MG PO (20:29)
[2017-11-15] MEDS ORDERED: METOLAZONE5 MG PO (20:30)
[2017-11-15 21:30] LABS: APPEARANCE CLEAR ((CLEAR)); BILIRUBIN NEGATIVE; BLOOD SMALL; COLOR STRAW ((YELLOW)); GLUCOSE (STRIP) 150; KETONES NEGATIVE; LEUKOCYTES NEGATIVE; NITRITE NEGATIVE; PROTEIN (STRIP) >=500; UROBILINOGEN 0.2 MG/DL (0.2-1.0)
[2017-11-15 21:35] LABS: BACTERIA RARE /HPF; EPITHELIAL CELLS RARE /HPF; MUCUS TRACE /LPF; RED BLOOD CELLS 0-5 /HPF (0-5); UCUL ADDED? NO; WHITE BLOOD CELLS 0-5 /HPF (0-5)
[2017-11-15 22:18] LABS: URIC ACID 6.6 mg/dL (3.1-9.2)
[2017-11-15 23:40] VITALS: BP 204/90
[2017-11-15 23:44] LABS: CHLORIDE 114 mEq/L (99-109); SODIUM 140 mEq/L (136-147)
[2017-11-15 23:45] LABS: POTASSIUM 4.9 mEq/L (3.7-5.4)
[2017-11-15 23:50] LABS: CREATININE 5.6 mg/dL (0.6-1.3); GFR ESTIMATE (CALCULATED) 11 mL/min/ (58.99-99999); GLUCOSE 138 mg/dL (70-99); UREA NITROGEN (BUN) 78 mg/dL (9-23)
[2017-11-16] VITALS (7 sets, daily range): BP systolic 160–197; BP diastolic 66–86
[2017-11-16 06:26] LABS: HEMOGLOBIN 10.3 G/DL (12.5-16.6); MCHC 30.3 G/DL (30.0-36.0); MCV 82.5 FL (86-99); PLATELET COUNT 155 K/uL (156-360); RBC DIS.WIDTH-CV 16.2 % (11.8-14.6); RBC DIS.WIDTH-SD 49.1 % (39-53); RED BLOOD COUNT 4.12 M/uL (4.00-5.50); WHITE BLOOD COUNT 5.5 K/uL (4.1-10.2)
[2017-11-16 06:50] LABS: ALBUMIN 2.6 G/DL (3.2-4.8); CHLORIDE 112 MEQ/L (99-109); CREATININE 6.1 MG/DL (0.6-1.3); GFR ESTIMATE (CALCULATED) 10 mL/min/ (58.99-99999); PHOSPHORUS 7.5 mg/dL (2.5-4.9); POTASSIUM 5.1 MEQ/L (3.7-5.4); SODIUM 142 MEQ/L (136-147); UREA NITROGEN (BUN) 90 mg/dL (9-23)
[2017-11-16 06:53] LABS: GLUCOSE 51 mg/dL (70-99)
[2017-11-16 12:01] LABS: HEPATITIS B SURFACE ANTIGEN Nonreactive
[2017-11-16 12:02] LABS: HEPATITIS C ANTIBODY Nonreactive
[2017-11-16 12:03] LABS: ANTI-HEPATITIS B CORE (TOTAL) Nonreactive; HEPATITIS B SURFACE ANTIBODY Nonreactive
[2017-11-17 03:39] VITALS: BP 166/75
[2017-11-17 05:51] LABS: BASOPHIL (%) 1.2 % (0-1); BASOPHIL COUNT 0.1 K/uL (0-0.1); EOSINOPHIL (%) 2.3 % (0-5); EOSINOPHIL COUNT 0.1 K/uL (0-0.3); HEMATOCRIT 31.4 % (38.0-50.0); HEMOGLOBIN 9.5 G/DL (12.5-16.6); IMMATURE GRANULOCYTE (%) 0.2 % (0.0-0.7); LYMPHOCYTE COUNT 0.8 K/uL (1.0-2.8); MCH 24.7 PG (29.0-34.0); MCHC 30.3 G/DL (30.0-36.0); MCV 81.6 FL (86-99); MONOCYTE (%) 10.5 % (3-12); MONOCYTE COUNT 0.5 K/uL (0-0.8); NEUTROPHIL (%) 69.8 % (45-76); NEUTROPHIL COUNT 3.6 K/uL (1.8-6.4); PLATELET COUNT 161 K/uL (156-360); RBC DIS.WIDTH-CV 16.3 % (11.8-14.6); RBC DIS.WIDTH-SD 48.3 % (39-53); RED BLOOD COUNT 3.85 M/uL (4.00-5.50); WHITE BLOOD COUNT 5.1 K/uL (4.1-10.2)
[2017-11-17 06:09] LABS: CHLORIDE 108 MEQ/L (99-109); CREATININE 5.1 MG/DL (0.6-1.3); GFR ESTIMATE (CALCULATED) 12 mL/min/ (58.99-99999); GLUCOSE 60 mg/dL (70-99); POTASSIUM 4.5 MEQ/L (3.7-5.4); SODIUM 141 MEQ/L (136-147); UREA NITROGEN (BUN) 66 mg/dL (9-23)
[2017-11-17 08:07] VITALS: BP 190/79
[2017-11-17 11:50] VITALS: BP 144/70
[2017-11-17 15:54] VITALS: BP 120/60
[2017-11-17] MEDS ORDERED: CALCIUM ACETAT667 MG PO (17:13)
[2017-11-17] MEDS ORDERED: LEVEMIR100 UNIT/2 SC (17:22)
== END 2017-11-17 18:05 | disposition home or self-care (01) | DRG 682 ==
LOC: EME 16:39 → EDOF 20:43 → 4SOUTH 20:43 → EDOF 20:43 → ENRESERV 20:49 → CANRESERV 21:15 → ENRESERV 21:15 → CANRESERV 21:33 → ENRESERV 21:33 → 4SOUTH 23:14
PROVIDERS: Hospitalist; Internal Medicine Nephrology; Physician Assistant
PROC: 5A1D70Z Performance of Urinary Filtration, Intermittent, Less than 6 Hours Per Day (ICD-10-PCS; principal; 2017-11-16)
DX: I12.0 Hypertensive chronic kidney disease with stage 5 chronic kidney disease or end stage renal disease (principal); N18.6 End stage renal disease; E87.5 Hyperkalemia; E11.22 Type 2 diabetes mellitus with diabetic chronic kidney disease; D63.1 Anemia in chronic kidney disease; E11.42 Type 2 diabetes mellitus with diabetic polyneuropathy; E11.65 Type 2 diabetes mellitus with hyperglycemia; E87.1 Hypo-osmolality and hyponatremia; E87.2 Acidosis; I25.10 Atherosclerotic heart disease of native coronary artery without angina pectoris; E78.5 Hyperlipidemia, unspecified; I44.0 Atrioventricular block, first degree; I45.10 Unspecified right bundle-branch block; I89.0 Lymphedema, not elsewhere classified; E66.01 Morbid (severe) obesity due to excess calories; Z68.34 Body mass index [BMI] 34.0-34.9, adult; J45.909 Unspecified asthma, uncomplicated; I87.2 Venous insufficiency (chronic) (peripheral); R63.0 Anorexia; I25.2 Old myocardial infarction; Z86.73 Personal history of transient ischemic attack (TIA), and cerebral infarction without residual deficits; Z85.028 Personal history of other malignant neoplasm of stomach; Z85.46 Personal history of malignant neoplasm of prostate; Z95.5 Presence of coronary angioplasty implant and graft; Z90.79 Acquired absence of other genital organ(s); Z89.422 Acquired absence of other left toe(s); Z79.02 Long term (current) use of antithrombotics/antiplatelets; Z79.82 Long term (current) use of aspirin; Z79.4 Long term (current) use of insulin; Z83.3 Family history of diabetes mellitus
CPT/HCPCS: 36415; 71045; 80048; 80048 91; 80053; 80069; 81003; 82948; 83735; 84550; 85025; 85027; 86704; 86706; 86803; 87340; 93005; 93970; 99281; 99285; G0378; J0360; J1815; J1940; J7030; J7050